=== PATIENT | female | born 1985 ===

== ENCOUNTER → 2017-05-16 | Outpatient (CLI) | payer OTHER | END | disposition home or self-care (01) | LOC: SONOGRAMA 10:20 | DX: E04.2 Nontoxic multinodular goiter (principal) ==

== ENCOUNTER 2018-06-28 11:09 | Outpatient (CLI) | payer OTHER | END 2018-06-28 11:17 | disposition home or self-care (01) | LOC: SONOGRAMA 11:09 | DX: E04.2 Nontoxic multinodular goiter (principal) ==

== ENCOUNTER 2023-05-01 13:04 | Outpatient (CLI) | payer OTHER | END 2023-05-01 13:06 | disposition home or self-care (01) | LOC: SONOGRAMA 13:04 | PROVIDERS: ATTEND Pathology Anatomic Pathology & Clinical Pathology | DX: D34 Benign neoplasm of thyroid gland (principal); E07.89 Other specified disorders of thyroid; E04.2 Nontoxic multinodular goiter ==